=== PATIENT | male | born 1940 | race Caucasian/White ===

== ENCOUNTER 2019-06-28 19:17 | Emergency (ER) | payer OTHER ==
[2019-06-28 19:25] VITALS: BP 155/75; PULSE 85; TEMP 97.5; BMI 28.2
[2019-06-28] MEDS ORDERED: KETOROLAC TROMETHAMINE 30 MG/1 ML VIAL IVPUSH ONE (20:07)
--- NOTE | 2019-06-28 20:10 | PDOC ---
Documentation entered by Elizabeth Cross SCRIBE, acting as scribe for Jagjit Ghosh MD. Jagjit Ghosh MD: This documentation has been prepared by the frannieibe, Elizabeth Cross SCRIBE, under my direction and personally reviewed by me in its entirety. I confirm that the documentation accurately reflects all work , treatment, procedures, and medical decision making performed by me. History of Present Illness - General Chief Complaint: Back Pain Stated Complaint: SPASMS History Source: Patient Exam Limitations: No Limitations - History of Present Illness Initial Comments: 06/28/19 20:08 The patient is a 79-year-old male who presents to the emergency department with a lower back spasm. The patient presents with 10 days of intermittent episodes of lower back spasms, that worsened his morning. The patient reports the pain started to radiate up to mid-back region, which wraps around to the right/left quadrant, with difficulty catching a breath. No pain relief noted with Aleve. Denies any lower abdominal pain. Denies prior similar pain. Denies hematuria, dysuria, urinary frequency. Denies a history of kidney stones. Denies nausea or vomiting. Deines pain going down the leg. PAST MEDICAL HISTORY: no significant history PAST SURGICAL HISTORY: no significant history FAMILY HISTORY: no pertinent history SOCIAL HISTORY: Pt lives with family and is retired. MEDICATIONS: reviewed ALLERGIES: As per nursing notes PCP: Dr. Garibay. Review of system: General: No fevers or chills, no weakness, no weight loss HEENT: No change in vision. No sore throat,. No ear pain CardioVascular: No chest pain or shortness of breath Respiratory:No cough, or wheezing. Gastrointestinal: no nausea, vomiting, diarrhea or constipation, No rectal bleeding Genitourinary: No dysuria, hematuria, or frequency Musculoskeletal: +lower back spasm. No other joint or muscle pain or swelling Neurologic: No headache, vertigo, dizziness or loss of consciousness Psychiatric: nor depression Skin: No rashes or easy bruising Endocrine: no increased thirst or abnormal weight change Allergic: no skin or latex allergy All other systems reviewed and normal Physical exam: General: Well-nourished well-developed individual, no acute distress HEENT: Throat: Normal, tonsils normal, no erythema or exudate Neck: Supple, no meningeal signs, no lymphadenopathy Eyes::Pupils equal reactive and round, extraocular motion intact Chest: Nontender to palpation Cardiac: S1-S2 normal, regular rate and rhythm, no murmurs rubs or gallops Respiratory: Lungs clear to auscultation bilateral Abdomen: Soft, nondistended, normal bowel sounds, nontender to palpation diffusely Back: No CVA tenderness, no flank tenderness, no thoracic tenderness, no lumbar tenderness. Extremities: Warm, dry, no cyanosis, clubbing, or edema Skin: No rashes Neuro: Alert and oriented x3, nonfocal exam, grossly intact. Psych: Normal mood and affect Assessment: This is a 79-year-old male who comes in with his for evaluation of back pain and spasms. Patient has a history of low back pain but is never had any pain like this he said. Patient is complaining of bilateral spasms and pain radiating from just below the rib cage around to the flank and anterior abdomen. Patient denies any nausea with the associated spasms. Patient denies any frequency dysuria or hematuria. Patient denies history of similar spasms in the past associated with his low back pain. Work-up initiated including CBC, comp, UA, chest x-ray, spiral CT, urine culture 06/28/19 21:58 Work-up was negative for any acute pathology including a normal CBC normal comp normal urine normal chest x-ray a normal CAT scan with the exception of degenerative changes of the lumbar spine. There was no evidence of urinary tract infection or renal colic. 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 Patient discharged and will follow up with his primary care doctor Past History - Past Medical History Allergies/Adverse Reactions: Allergies Allergy/AdvReac Type Severity Reaction Status Date / Time No Known Allergies Allergy Verified 06/27/12 08:39 Home Medications: Ambulatory Orders Aspirin [Aspirin EC] 81 mg PO DAILY 06/28/19 B12/Levomefolate Calcium/B-6 [Folbic Rf Tablet] 1 each PO DAILY 06/28/19 Cyclobenzaprine HCl [Flexeril 10 mg] 10 mg PO BID PRN #60 tablet 06/28/19 COPD: No - Immunization History Td Vaccination: Yes (> 5 YEARS AGO) - Psycho Social/Smoking Cessation Hx Smoking Status: No Smoking History: Never smoked Number of Cigarettes Smoked Daily: 0 *Physical Exam - Vital Signs Last Vital Signs Temp Pulse Resp BP Pulse Ox 97.5 F L 85 16 155/75 99 06/28/19 19:22 06/28/19 19:22 06/28/19 19:22 06/28/19 19:22 06/28/19 19:22 ED Treatment Course - LABORATORY CBC & Chemistry Diagram: 06/28/19 20:15 06/28/19 20:15 - RADIOLOGY Radiology Studies Ordered: Category Date Time Status SPIRAL- RENAL-STONE CT [CT] Stat CT Scan 06/28/19 20:05 Ordered CHEST PA & LAT [RAD] Stat Radiology 06/28/19 20:06 Ordered Discharge - Discharge Information Problems reviewed: Yes Clinical Impression/Diagnosis: Back muscle spasm Condition: Stable Disposition: HOME - Admission No - Additional Discharge Information Prescriptions: Cyclobenzaprine HCl [Flexeril 10 mg] 10 mg PO BID PRN #60 tablet PRN Reason: Back Pain - Follow up/Referral Referrals: Michael Garibay MD [Primary Care Provider] - - Patient Discharge Instructions Additional Instructions: For the pain take Aleve 1 or 2 tablets as often as twice a day with food do not take on an empty stomach. For the spasms you can take Flexeril which is a muscle relaxant it will make you drowsy so try to limit to the nighttime hours. Return to the emergency department immediately with ANY new, persistent or worsening symptoms. Continue any medications as previously prescribed by your physician. You should follow up with your primary doctor as soon as possible regarding today's emergency department visit. . Please make sure your doctor reviews the results of your emergency evaluation. Thank you for coming to the Emergency Department today for your care. It was a pleasure to see you today. Please note that your evaluation is INCOMPLETE until you follow-up with your doctor. - Post Discharge Activity
[2019-06-28] MEDS ORDERED: SODIUM CHLORIDE 1,000 ML IV SCH (20:15)
[2019-06-28] MEDS ORDERED: KETOROLAC TROMETHAMINE 30 MG/1 ML VIAL ONE (20:20)
[2019-06-28 20:36] LABS: BASO % 0.4 % (0-2.0); EOS % 1.1 % (0-4.5); HEMATOCRIT 39.3 % (35.4-49); HEMOGLOBIN 12.8 GM/dl (11.7-16.9); LYMPH % 16.4 % (8-40); MCH 30.5 pg (25.7-33.7); MCHC 32.5 g/dl (32.0-35.9); MEAN CELL VOLUME 93.8 fl (80-96); MEAN PLT VOLUME 8.2 fl (7.5-11.1); MONO % 10.1 % (3.8-10.2); PLATELET COUNT 206 K/MM3 (134-434); RBC 4.19 M/mm3 (4.00-5.60)
[2019-06-28 20:40] LABS: ALBUMIN 3.7 g/dl (3.4-5.0); BILIRUBIN,TOTAL 0.9 mg/dl (0.2-1); CALCIUM 8.8 mg/dl (8.5-10); CREATININE 0.7 mg/dl (0.55-1.3); POTASSIUM 4.3 mmol/L (3.5-5.1); TOT PROT 6.8 g/dl (6.4-8.2)
[2019-06-28] MEDS ORDERED: DEXAMETHASONE SOD PHOSPHATE 10 MG/1 ML VIAL IVPUSH ONE ×2 (21:53→21:55)
[2019-06-28] MEDS ORDERED: DEXAMETHASONE SOD PHOSPHATE 10 MG/1 ML VIAL ONE (21:55)
[2019-06-28] MEDS ORDERED: CYCLOBENZAPRINE HCL 10 MG TABLET (FP) PO ONE (21:57)
[2019-06-28] MEDS ORDERED: CYCLOBENZAPRINE HCL 10 MG TABLET (FP) ONE (21:59)
--- NOTE | 2019-06-29 14:11 | EKG ---
Test Reason : Blood Pressure : / mmHG Vent. Rate : 075 BPM Atrial Rate : 075 BPM P-R Int : 152 ms QRS Dur : 092 ms QT Int : 428 ms P-R-T Axes : 046 -18 010 degrees QTc Int : 477 ms NORMAL SINUS RHYTHM POSSIBLE LEFT ATRIAL ENLARGEMENT INFERIOR INFARCT , AGE UNDETERMINED POOR R WAVE PROGRESSION ABNORMAL ECG NO PREVIOUS ECGS AVAILABLE Confirmed by MO PHILLIPS MD ([id number]) on 06/29/2019 2:11:18 PM Referred By: DR COLORADO Confirmed By:MO PHILLIPS MD
== END 2019-06-28 22:15 | disposition home or self-care (01) ==
LOC: FER 19:17
PROC: 3E033GC Introduction of Other Therapeutic Substance into Peripheral Vein, Percutaneous Approach (ICD-10-PCS; principal; 2019-06-28)
PROC: 3E0333Z Introduction of Anti-inflammatory into Peripheral Vein, Percutaneous Approach (ICD-10-PCS; 2019-06-28)
DX: M62.830 Muscle spasm of back (principal)
CPT/HCPCS: 36415; 71046-TC-FY; 74176-TC; 80053; 81003; 81015; 82550; 83605; 84484; 85025; 87086; 93005; 99283-25; J1100; J7030

== ENCOUNTER 2022-02-23 23:13 | Inpatient (IN) | payer OTHER ==
[2022-02-24 00:25] LABS: BASO % 0.5 % (0-2.0); EOS % 1.6 % (0-4.5); HEMATOCRIT 28.5 % (35.4-49); HEMOGLOBIN 9.6 GM/dL (11.7-16.9); LYMPH % 24.1 % (8-40); MCH 33.6 pg (25.7-33.7); MCHC 33.8 g/dl (32.0-35.9); MEAN CELL VOLUME 99.4 fl (80-96); MEAN PLT VOLUME 8.4 fl (7.5-11.1); MONO % 10.1 % (3.8-10.2); NEUT % 63.7 % (42.8-82.8); PLATELET COUNT 147 10^3/uL (134-434); RBC 2.86 M/mm3 (4.00-5.60); RDW 13.8 % (11.9-15.9); WHITE BLOOD COUNT 5.5 K/mm3 (4.0-10.0)
[2022-02-24 00:48] LABS: ACTIVATED PTT 25.6 SECONDS (25.2-36.5); INR 1.04 (0.83-1.09)
[2022-02-24 02:02] LABS: ALBUMIN 3.2 g/dl (3.4-5.0); BILIRUBIN,TOTAL 0.3 mg/dL (0.2-1); BLOOD UREA NITROGEN 31.7 mg/dL (7-18); CALCIUM 8.2 mg/dL (8.5-10.1); CREATININE 0.9 mg/dL (0.55-1.3); TOT PROT 5.8 g/dl (6.4-8.2)
[2022-02-24 06:50] LABS: HEMATOCRIT 24.7 % (35.4-49); HEMOGLOBIN 8.3 GM/dL (11.7-16.9); MCH 33.5 pg (25.7-33.7); MCHC 33.6 g/dl (32.0-35.9); MEAN CELL VOLUME 99.6 fl (80-96); MEAN PLT VOLUME 8.8 fl (7.5-11.1); PLATELET COUNT 125 10^3/uL (134-434); RBC 2.48 M/mm3 (4.00-5.60); RDW 13.4 % (11.9-15.9); WHITE BLOOD COUNT 4.4 K/mm3 (4.0-10.0)
[2022-02-24 07:19] LABS: CREATININE 0.8 mg/dL (0.55-1.3)
[2022-02-24] MEDS ORDERED: FUROSEMIDE 20 MG TABLET (FP) PO SCH ×2 (10:00→10:15)
[2022-02-24] MEDS ORDERED: FUROSEMIDE PO SCH (10:00)
[2022-02-24 10:17] VITALS: BMI 26.2
[2022-02-24] MEDS ORDERED: PEG/ELECTROLYTES (NULYTELY) 4,000 ML BOTTLE PO ONE (14:00)
[2022-02-24] MEDS ORDERED: DEXTROSE 5%-0.45% SALINE 1,000 ML IV SCH (15:00)
[2022-02-24 17:23] LABS: HEMATOCRIT 22.4 % (35.4-49); HEMOGLOBIN 7.7 G/dL (11.7-16.9); MCHC 34.3 g/dl (32.0-35.9); MEAN PLT VOLUME 7.9 fl (7.5-11.1); PLATELET COUNT 125.9 10^3/uL (134-434); RBC 2.26 10^6/uL (4.00-5.60); RDW 13.9 % (11.9-15.9); WHITE BLOOD COUNT 5.9 10^3/uL (4.0-10.8)
[2022-02-25 08:31] LABS: ALBUMIN 2.7 g/dl (3.4-5.0); BILIRUBIN,TOTAL 0.9 mg/dl (0.2-1); CREATININE 0.7 mg/dl (0.55-1.3); MAGNESIUM 1.6 mg/dL (1.8-2.4); TOT PROT 4.2 g/dl (6.4-8.2)
[2022-02-25 08:45] LABS: HEMATOCRIT 22.2 % (35.4-49); HEMOGLOBIN 7.6 G/dL (11.7-16.9); MCH 34.1 pg (25.7-33.7); MCHC 34.1 g/dl (32.0-35.9); MEAN CELL VOLUME 99.9 fl (80-96); MEAN PLT VOLUME 8.6 fl (7.5-11.1); PLATELET COUNT 106.6 10^3/uL (134-434); RBC 2.22 10^6/uL (4.00-5.60); RDW 13.8 % (11.9-15.9); WHITE BLOOD COUNT 4.1 10^3/uL (4.0-10.8)
[2022-02-25] MEDS ORDERED: MAGNESIUM SULF 50% (8.12 MEQ/2 ML-1 GM VIAL) IVPB ONE (08:59)
[2022-02-25] MEDS ORDERED: MAGNESIUM SULFATE IN WATER 2 GM/50 ML IVPB IVPB ONE (09:15)
[2022-02-25] MEDS: KCL 10 MEQ IVPB 10 MEQ/100 ML INFUS.BAG IVPB SCH ×2 (11:03→15:43)
[2022-02-25] MEDS ORDERED: POTASSIUM CHLORIDE TABS 20 MEQ TABLET.ER (FP) PO ONE (15:15)
[2022-02-25] MEDS ORDERED: FUROSEMIDE 40 MG/4 ML INJECTABLE VIAL IVPUSH ONE (15:15)
[2022-02-25 16:34] VITALS: BP 114/49; PULSE 63; TEMP 97.7
[2022-02-25 18:15] LABS: HEMATOCRIT 27.6 % (35.4-49); HEMOGLOBIN 9.7 G/dL (11.7-16.9); MCHC 35.1 g/dl (32.0-35.9); MEAN PLT VOLUME 8.7 fl (7.5-11.1); PLATELET COUNT 107.7 10^3/uL (134-434); RBC 2.85 10^6/uL (4.00-5.60); RDW 15.4 % (11.9-15.9); WHITE BLOOD COUNT 4.8 10^3/uL (4.0-10.8)
== END 2022-02-25 19:02 | disposition home or self-care (01) | DRG 375 ==
LOC: FER 23:13 → FM/S 02-24 08:10
PROVIDERS: ADMIT Hospitalist; ATTEND Nurse Practitioner Acute Care
PROC: 30233N1 Transfusion of Nonautologous Red Blood Cells into Peripheral Vein, Percutaneous Approach (ICD-10-PCS; 2022-02-25)
PROC: 0DBC8ZX Excision of Ileocecal Valve, Via Natural or Artificial Opening Endoscopic, Diagnostic (ICD-10-PCS; principal; 2022-02-25 10:04)
DX: D49.0 Neoplasm of unspecified behavior of digestive system (principal); K62.5 Hemorrhage of anus and rectum; K64.8 Other hemorrhoids; E78.5 Hyperlipidemia, unspecified; K57.90 Diverticulosis of intestine, part unspecified, without perforation or abscess without bleeding; D64.9 Anemia, unspecified
CPT/HCPCS: 0241U-QW; 36415; 36430; 71045-TC-FY; 74174-TC; 80048; 80053; 82272; 83735; 85025; 85027; 85610; 85730; 86850; 86900; 86901; 86922; 88305-TC; 93005; 99285-25; P9058

== ENCOUNTER 2023-04-07 07:04 | Day surgery (SDC) | payer OTHER ==
[2023-04-05 15:26] VITALS: BMI 27.4
[2023-04-07] MEDS ORDERED: PROPOFOL 120 ML ONE (07:09)
[2023-04-07] MEDS ORDERED: GLYCOPYRROLATE 0.2 MG/1 ML VIAL ONE (07:53)
[2023-04-07] MEDS ORDERED: LIDOCAINE HCL/PF 2% SDV 5ML VIAL ONE (07:53)
[2023-04-07 08:44] VITALS: PULSE 51; RESP 16; TEMP 97
[2023-04-07 09:17] VITALS: BP 101/64
== END 2023-04-07 09:35 | disposition home or self-care (01) ==
LOC: FASU-ENDO 07:04
PROVIDERS: ATTEND Internal Medicine Gastroenterology
PROC: 0DBL8ZX Excision of Transverse Colon, Via Natural or Artificial Opening Endoscopic, Diagnostic (ICD-10-PCS; 2023-04-07)
PROC: 0DBN8ZX Excision of Sigmoid Colon, Via Natural or Artificial Opening Endoscopic, Diagnostic (ICD-10-PCS; 2023-04-07)
PROC: 0DBP8ZX Excision of Rectum, Via Natural or Artificial Opening Endoscopic, Diagnostic (ICD-10-PCS; principal; 2023-04-07 08:14)
DX: Z12.11 Encounter for screening for malignant neoplasm of colon (principal); D12.5 Benign neoplasm of sigmoid colon; K62.1 Rectal polyp; Z98.0 Intestinal bypass and anastomosis status; K63.89 Other specified diseases of intestine; Z85.038 Personal history of other malignant neoplasm of large intestine
CPT/HCPCS: 88305-TC